=== PATIENT | male | born 2005 | race Caucasian/White ===

== ENCOUNTER 2025-02-04 09:53 | Emergency (ER) | payer BC ==
[~2025-02-04] VITALS: Ht 180.3 cm; Wt 68.0 kg
[2025-02-04] MEDS ORDERED: DEXAMETHASONE SODIUM PHOSPHATE 4 MG/ML VIAL IM STA (12:56)
[2025-02-04] MEDS ORDERED: BENADRYL ALLERG25 MG PO (14:55)
== END 2025-02-04 15:08 | disposition home or self-care (01) ==
LOC: ER 09:56
DX: R21 Rash and other nonspecific skin eruption (principal); T78.40XA Allergy, unspecified, initial encounter; Z88.0 Allergy status to penicillin